=== PATIENT | male | born 1970 | race Caucasian/White ===

== ENCOUNTER → 2020-12-08 | Day surgery (SDC) | payer OTHER ==
[~2020-12-08] MED LIST: ATENOLOL 100MG100 MG PO; ATENOLOL 25 MG25 M1 PO; DOXYCYCLINE 10100 MG PO; NAPROSYN500 M1 PO; OMEPRAZOLE 20 M20 M1 PO; PRINIVIL5 MG PO
--- NOTE | ~2020-12-08 | PROC ---
[address] [address] PROCEDURE REPORT Name: JAY THOMAS Room: [facility]#: [id number] Admission: 12/08/20 Attend Phys: Scotty Ocampo DO Discharge: Date of : 70 Report #: [id number] THIS REPORT FOR: cc: Rob Rowe John E. DO [facility],Medical Records Staff ~ For GI report, please see the Provation report in Perceptive 7 content. By: 1456Medical Records Staff BIANCA /DOMONIQUE
--- NOTE | 2020-12-08 10:54 | EKG ---
[place] [address] ELECTROCARDIOGRAM REPORT Name: JAY THOMAS Room: [facility]#: [id number] Admission: 12/08/20 Attend Phys: Scotty Ocampo, Discharge: Date of : 70 Date of Service: 12/08/20 0853 Report #: [id number] THIS REPORT FOR: //name// [facility] Test Date: 2020-12-08 Test Time: 08:53:24 Pat Name: JAY THOMAS Department: Room: Gender: Valve Technician: : 1970 Requested By: Adelita Vargas Order Number: [id number] Mihai MD: Jay Gutiérrez Measurements Intervals [place] Rate: 54 P: IN: 259 QRS: -26 QRSD: 187 T: -26 QT: 458 QTc: 435 Interpretive Statements Atrial-paced rhythm Right bundle branch block Abnormal T, consider ischemia, lateral leads No previous ECG available for comparison Electronically Signed On 12-08-2020 10:54:41 CDT by Jay Gutiérrez [email or web address] <ELECTRONICALLY SIGNED> By: Jay Gutiérrez MD, [facility] 12/08/20 1054 0853 0853 Jay Gutiérrez MD, [facility] /EPI
--- NOTE | 2020-12-12 17:06 | PATH ---
[facility] [address] [place] [address] PATHOLOGY RPT PROCEDURE Name: JAY THOMAS Room: [facility]#: [id number] Admission: 12/08/20 Date of : 70 Discharge: Report #: [id number] Path Case #: [id number] [facility] Accession Number: [id number] . 01 Material submitted: . PART A: small bowel - SMALL BOWEL PART B: cecum - CECAL BIOPSY PART C: colon - ASCENDING COLON BIOPSY. Modifiers: ascending PART D: colon - TRANSVERSE COLON BIOPSY. Modifiers: transverse PART E: colon - DESCENDING COLON BIOPSY. Modifiers: descending PART F: sigmoid colon - SIGMOID COLON BIOPSY PART G: rectum - RECTAL BIOPSY . 01 Clinical history: . DS/EGD AND COLONOSCOPY ANEMIA,REFLUX,BLOOD IN STOOL,GERD RULE OUT IRON DEFICIENCY . 02 Diagnosis: A. Small bowel: - Normal small intestinal mucosa. . B. Cecal biopsy: - Chronic colitis with mild activity suspicious for Crohn's disease, negative for granulomas and dysplasia. See comment. . C. Ascending colon biopsy: - Chronic colitis with severe activity suspicious for Crohn's disease, negative for granulomas and dysplasia. See comment. . D. Transverse colon biopsy: - Chronic colitis with moderate activity and suggestion of granuloma, suspicious for Crohn's disease, negative for dysplasia. See comment. . E. Descending colon biopsy: - Chronic colitis with focal/mild activity and micro granuloma, suspicious for Crohn's disease, negative for dysplasia. See comment. . F, G. Sigmoid colon biopsy and rectal biopsy: - Focal fresh hemorrhage in otherwise normal colonic mucosa. . (EMANI:mm; 12/12/2020) [facility] 12/12/2020 1334 Local . 02 Comment: In the cecal, ascending, transverse and descending colon biopsies, there is easily identified chronic colitis with crypt distortion, basal lymphoplasmacytosis and Paneth cell metaplasia [place] [address] PATHOLOGY RPT PROCEDURE Name: JAY THOMAS Room: [facility].#: [id number] Admission: 12/08/20 Date of : 70 Discharge: Report #: [id number] Path Case #: [id number] abundance of eosinophils. In the descending colon biopsy (E) there is a micro granuloma in the lamina propria with nearby Paneth cell metaplasia, typical of that seen in Crohn's disease. In the appropriate clinical setting, the histologic findings are compatible with Crohn's disease. . (EMANI:mml; 12/12/2020) . 02 Electronically signed: . Rylan Tong MD, Pathologist NPI- [id number] . 01 Gross description: . A. Received in formalin labeled "Baldus, Jay and small bowel". Received a 3 wall-brown soft tissue fragments ranging from 0.2-0.3 cm. The specimen is entirely submitted in cassette A1. . B. Received in formalin labeled "Baldus, Jay and cecal biopsy". Received are 2 wall-brown soft tissue fragment ranging from 0.2-0.3 cm. The specimen is entirely submitted in cassette B1. . C. Received in formalin labeled "Baldus, Jay and ascending colon biopsy". Received are 2 wall-brown soft tissue fragments ranging from 0.3-0.4 cm. The specimen is entirely submitted in cassette C1. . D. Received in formalin labeled "Baldus, Jay and transverse colon biopsy". Received are 2 wall-brown soft tissue fragments ranging from 0.2-0.3 cm. The specimen is entirely submitted in cassette D1. . E. Received in formalin labeled "Baldus, Jay and descending colon biopsy". Received are 2 wall-brown soft tissue fragments range from 0.2-0.3 cm. The specimen is entirely submitted in cassette E1. . F. Received in formalin labeled "Baldus, Jay and sigmoid colon biopsy". Received is a wall-brown soft tissue fragment measuring 0.4 x 0.4 x 0.2 cm. The specimen is entirely spent in cassette F1. . G. Received in formalin labeled "Baldus, Jay and rectal biopsy". Received are 2 wall-brown soft tissue fragments ranging from 0.3-0.5 cm. The specimen is entirely submitted in cassette G1.(BLJ; 12/11/2020) . BLJ/BLJ 12/11/2020 2137 Local . 02 Pathologist provided ICD-10: K52.9, K62.5, Z12.11, D64.9, K21.00, K92.1 . 02 CPT . 142056, 512622, 831997, 956052, 114896, 079574, 296015 Specimen Comment: A courtesy copy of this report has been sent to [phone], [phone] [phone] PATHOLOGY RPT PROCEDURE Name: JAY THOMAS Room: [facility].#: [id number] Admission: 12/08/20 Date of : 70 Discharge: Report #: [id number] Path Case #: [id number] Specimen Comment: [id number] Specimen Comment: Report sent to / DR SAMSON Performed at: [facility] [address], [place], [place] [id number] MD Francisco Gilliland MD Phone: [phone] Performed at: [facility] [address], [place], [place] [id number] MD Rylan Tong MD Phone: [phone]
== END | disposition home or self-care (01) ==
LOC: M.SUR 06:03
PROVIDERS: ATTEND Internal Medicine Gastroenterology
DX: K92.1 Melena (principal); K52.9 Noninfective gastroenteritis and colitis, unspecified; K21.00 Gastro-esophageal reflux disease with esophagitis, without bleeding; D50.9 Iron deficiency anemia, unspecified; K44.9 Diaphragmatic hernia without obstruction or gangrene; K64.4 Residual hemorrhoidal skin tags; I10 Essential (primary) hypertension; G47.30 Sleep apnea, unspecified; Z98.890 Other specified postprocedural states; Z79.899 Other long term (current) drug therapy

== ENCOUNTER → 2020-12-29 | Outpatient (CLI) | payer OTHER | LOC: M.CT 08:36 | PROVIDERS: ATTEND Internal Medicine Gastroenterology | DX: K76.0 Fatty (change of) liver, not elsewhere classified (principal); L92.8 Other granulomatous disorders of the skin and subcutaneous tissue; I51.7 Cardiomegaly; M25.70 Osteophyte, unspecified joint; K52.9 Noninfective gastroenteritis and colitis, unspecified; K92.1 Melena ==

== ENCOUNTER → 2021-01-19 | Outpatient (CLI) | payer OTHER | LOC: M.RAD 10:00 | PROVIDERS: ATTEND Internal Medicine Gastroenterology | DX: D50.9 Iron deficiency anemia, unspecified (principal) ==